=== PATIENT | male | born 1995 | race African-American/Black ===

== ENCOUNTER 2023-06-30 08:11 | Emergency (ER) | payer SELFPAY ==
[~2023-06-30] VITALS: Ht 177.8 cm; Wt 127.6 kg
[2023-06-30 08:40] VITALS: BP 109/69; PULSE 80; RESP 18; TEMP 97.8; O2SAT 100
[2023-06-30] MEDS ORDERED: LIDO5PAD8 EX (09:49)
== END 2023-06-30 09:57 | disposition home or self-care (01) ==
LOC: ER 08:11
DX: S16.1XXA Strain of muscle, fascia and tendon at neck level, initial encounter (principal); S39.012A Strain of muscle, fascia and tendon of lower back, initial encounter; Z79.899 Other long term (current) drug therapy; V49.9XXA Car occupant (driver) (passenger) injured in unspecified traffic accident, initial encounter; Y93.I9 Activity, other involving external motion; Y92.89 Other specified places as the place of occurrence of the external cause; Y99.8 Other external cause status
CPT/HCPCS: 72040; 72100